=== PATIENT | male | born 1950 | race Caucasian/White ===

== ENCOUNTER 2021-07-06 10:58 | Outpatient (CLI) | payer MEDICARE ==
[2021-07-06 14:50] LABS: BASOPHILS % (AUTO) 0.7 %; EOSINOPHILS # (AUTO) 0.1 10^3/uL (0.0-0.7); EOSINOPHILS % (AUTO) 1.5 %; HCT - HEMATOCRIT 43.2 % (42.0-52.0); HGB - HEMOGLOBIN 13.5 g/dL (14.0-18.0); LYMPHOCYTES % (AUTO) 22.7 %; MEAN CORPUSCULAR HEMOGLOBIN 30.2 pg (27.0-31.0); MEAN CORPUSCULAR HGB CONC 31.3 g/dL (32.0-36.0); MEAN CORPUSCULAR VOLUME 96.6 fL (80.0-94.0); MEAN PLATELET VOLUME 10.7 fL (7.4-11.4); MONOCYTES # (AUTO) 0.6 10^3/uL (0.0-1.0); MONOCYTES % (AUTO) 12.6 %; NEUTROPHILS # (AUTO) 2.9 10^3/uL (1.5-6.6); NEUTROPHILS % (AUTO) 62.3 %; PLT - PLATELET COUNT 172 10^3/uL (130-450); RED BLOOD COUNT 4.47 10^6/uL (4.70-6.10); RED CELL DISTRIBUTION WIDTH 14.6 % (12.0-15.0); WHITE BLOOD COUNT 4.6 x10^3/uL (4.8-10.8)
[2021-07-06 14:51] LABS: PARTIAL THROMBOPLASTIN TIME 30.3 secs (24.9-33.3)
[2021-07-06 15:22] LABS: INR 1.3 (0.8-1.2); PT - PROTHROMBIN TIME 14.5 secs (9.9-12.6)
[2021-07-06 15:56] LABS: ALBUMIN 4.3 g/dL (3.2-5.5); ALBUMIN/GLOBULIN RATIO 1.7 (1.0-2.2); ALKALINE PHOSPHATASE 50 IU/L (42-121); ALT ALANINE AMINOTRANSFERASE 17 IU/L (10-60); AST ASPARTATE AMINOTRANSFERASE 24 IU/L (10-42); BILIRUBIN,TOTAL 0.7 mg/dL (0.2-1.0); BUN - BLOOD UREA NITROGEN 31 mg/dL (6-20); CALCIUM 9.4 mg/dL (8.5-10.3); CARBON DIOXIDE - CO2 28 mmol/L (21-32); CHLORIDE 102 mmol/L (101-111); CHOL/HDL RATIO 2.6 (<5.0); CHOLESTEROL 243 mg/dL; CREATININE 1.1 mg/dL (0.6-1.2); GFR - MDRD 66 (>89); GLUCOSE 99 mg/dL (70-100); HDL CHOLESTEROL 94 mg/dL; LDL CHOLESTEROL,CALCULATED 137 mg/dL; LDL/HDL RATIO 1.5 (<3.6); POTASSIUM 4.2 mmol/L (3.5-5.0); SODIUM 137 mmol/L (135-145); TOTAL PROTEIN 6.8 g/dL (6.7-8.2); TRIGLYCERIDES 62 mg/dL; VLDL CHOLESTEROL 12 mg/dL
[2021-07-06 20:20] LABS: ESTIMATED AVERAGE GLUCOSE 114 mg/dL (70-100); HEMOGLOBIN A1c% 5.6 % (4.27-6.07)
[2021-07-08 09:20] LABS: HEPATITIS C ANTIBODY NON-REACTIVE (NON-REACTIVE)
== END 2021-07-06 10:59 | disposition home or self-care (01) ==
LOC: LAB.S 10:58
PROVIDERS: ATTEND Internal Medicine
DX: Z00.00 Encounter for general adult medical examination without abnormal findings (principal); I48.91 Unspecified atrial fibrillation; N18.30 Chronic kidney disease, stage 3 unspecified; Z11.59 Encounter for screening for other viral diseases; Z13.1 Encounter for screening for diabetes mellitus; Z13.220 Encounter for screening for lipoid disorders; Z79.01 Long term (current) use of anticoagulants
CPT/HCPCS: 36415; 80053; 80061; 83036; 83721; 85025; 85610; 85730; 86803

== ENCOUNTER 2021-08-03 07:29 | Outpatient (CLI) | payer MEDICARE ==
--- NOTE | 2021-08-03 09:23 | Ultrasound Report ---
PROCEDURE: Aorta Screening INDICATIONS: AAA SCREEN, H/O SMOKING TECHNIQUE: Real time scanning was performed of the aorta and iliac arteries, with image documentatio n. COMPARISON: None FINDINGS: Aorta: Proximal aortic diameter measures 2.8 x 2 point cm. Mid-aorta measures 2.1 x 2.5 cm. Distal aortic diameter is 2.0 x 1 point cm. Iliac arteries: Right common iliac artery measures 1.3 x 1.4 cm. Left common iliac artery measures 1.3 x 1.3 cm. IMPRESSION: No evidence of abdominal aortic aneurysm. Reviewed by: Cheryl Coronel MD, PhD on 08/03/2021 9:21 AM PST Approved by: Cheryl Coronel MD, PhD on 08/03/2021 9:21 AM PST Station ID: [id number]
--- NOTE | 2021-08-03 10:25 | Ultrasound Report ---
PROCEDURE: Testicle INDICATIONS: PAIN IN SCROTUM TECHNIQUE: Real-time scanning was performed of the scrotum and testicles, with image documentation. Color and p ulse Doppler interrogation was performed of both testicles. COMPARISON: None. FINDINGS: Right: Testicle is normal in size at 2.0 x 3.2 x 4.6 cm, and homogenous in echotexture. Right epidid ymal head cyst measuring 1.6 cm. Moderate right-sided varicocele. No hydrocele. Overlying scrotal ski n is normal in thickness. Left: Testicle is normal in size at 2.0 x 2.2 x 2.8 cm, and homogeneous in echotexture. Normal appea ana lilia of the epididymis. No hydrocele or varicoceles. Overlying scrotal skin is normal in thickness. Doppler: Color and pulse Doppler demonstrate normal and symmetric arterial flow in both testicles. IMPRESSION: Moderate right varicocele. Right epididymal head cyst measuring 1.6 cm. Reviewed by: Darwin Adams MD on 08/03/2021 10:24 AM PST Approved by: Darwin Adams MD on 08/03/2021 10:24 AM PST Station ID: [id number]
== END 2021-08-03 07:30 | disposition home or self-care (01) ==
LOC: DI 07:29
PROVIDERS: ATTEND Internal Medicine
DX: Z13.6 Encounter for screening for cardiovascular disorders (principal); Z87.891 Personal history of nicotine dependence; I86.1 Scrotal varices; N50.3 Cyst of epididymis

== ENCOUNTER 2022-02-21 13:19 | Emergency (ER) | payer MEDICARE ==
[2022-02-21] MEDS ORDERED: ADENOSINE 6 MG/2 ML VIAL IVP STA (13:38)
--- NOTE | 2022-02-21 13:40 | ED Physician Documentation ---
PD HPI CHEST PAIN - Stated complaint Stated Complaint: RAPID HEART BEATS - Chief complaint Chief Complaint: Cardiac - History obtained from History obtained from: Patient, Family () - Additional information Additional information: 71-year-old gentleman has a history of A. fib status post ablation about 4 years ago without recurrence since. He is still on a NOAC, Pradaxa. For the last 3 days he has felt a rapid heart rate. It is not painful. He gets a little winded when exercising, but is not short of breath at rest. Had a brief dizzy episode yesterday. He is not on any other meds right now. Review of Systems Ten Systems: 10 systems reviewed and negative Constitutional: denies: Fever, Chills, Fatigue Cardiac: denies: Chest pain / pressure, Pedal edema, Calf pain Respiratory: denies: Cough GI: denies: Bloody / black stool Musculoskeletal: denies: Neck pain, Back pain PD PAST MEDICAL HISTORY - Present Medications Home Medications: Ambulatory Orders Medication Instructions Recorded Confirmed Dabigatran Etexilate Mesylate 150 mg ORAL BID 02/21/22 02/21/22 [Pradaxa] diltiaZEM CD [Cardizem Cd] 120 mg PO DAILY #30 02/21/22 - Allergies Allergies/Adverse Reactions: Allergies Allergy/AdvReac Type Severity Reaction Status Date / Time clindamycin Allergy Hives Verified 02/21/22 13:32 PD ED PE NORMAL - Vitals Vital signs reviewed: Yes - General General: Alert and oriented X 3, No acute distress - HEENT HEENT: PERRL, EOMI - Neck Neck: Supple, no meningeal sign, No bony TTP - Cardiac Cardiac: Other (rapid/reg, no murmur) - Respiratory Respiratory: No respiratory distress, Clear bilaterally - Abdomen Abdomen: Normal bowel sounds, Soft, Non tender - Derm Derm: No rash - Extremities Extremities: No edema, No calf tenderness / cord - Neuro Neuro: Alert and oriented X 3, Normal speech Results - Vitals Vitals: Vital Signs - 24 hr 02/21/22 02/21/22 02/21/22 13:28 13:56 14:12 Temperature 36.7 C Heart Rate 139 H 134 H 132 H Respiratory 16 16 20 Rate Blood Pressure 101/88 H 101/88 H 99/78 O2 Saturation 100 97 97 02/21/22 02/21/22 02/21/22 14:27 14:44 15:11 Temperature Heart Rate 130 H 127 H 127 H Respiratory 16 16 16 Rate Blood Pressure 94/69 93/79 104/79 O2 Saturation 97 99 98 02/21/22 02/21/22 15:22 15:37 Temperature Heart Rate 85 95 Respiratory 16 22 Rate Blood Pressure 104/79 97/75 O2 Saturation 100 100 Oxygen O2 Source Room air - EKG (time done) 1326 Rate: Rate (enter#) (137) Rhythm: Other (narrow, exquisitely regular tachycardia) Intervals: Prolonged QT, Other (lafb) QRS: Normal Ischemia: Normal ST segments. No: ST elevation c/w ischemia Computer interpretation: Agree with computer - Labs Labs: Laboratory Tests 02/21/22 02/21/22 02/21/22 13:40 13:40 13:40 WBC 6.9 RBC 4.41 L Hgb 13.8 L Hct 41.3 L MCV 93.7 MCH 31.3 H MCHC 33.4 RDW 13.9 Plt Count 209 MPV 10.1 Neut # (Auto) 5.0 Lymph # (Auto) 1.2 L [place] # (Auto) 0.5 Eos # (Auto) 0.1 Baso # (Auto) 0.0 Absolute Nucleated RBC 0.00 Nucleated RBC % 0.0 Sodium 135 Potassium 4.0 Chloride 102 Carbon Dioxide 25 Anion Gap 8.0 BUN 33 H Creatinine 1.4 H Estimated GFR (MDRD) 50 L Glucose 134 H Calcium 9.4 Magnesium 2.0 TSH 2.70 PD MEDICAL DECISION MAKING - ED course ED course: 71-year-old gentleman presents with a symptomatic exquisitely regular narrow complex tachycardia. Valsalva during initial evaluation resulted in no change in rate. Given his history I do wonder if this represents atrial flutter altho ugh the computer reads it as sinus tachycardia. He was given 6 mg of IV adenosine and subsequently it was clear that the underlying rhythm was atrial flutter. Then given metoprolol 5mg IV x1, with no effect, repeated and HR came down only to high 120s. Offered cardioversion, pt declined. After the administration of 10 mg of diltiazem he was still in atrial flutter, but his rate was controlled in the 80s. I will prescribe this but mention to him that he may need close dose changes and follow-up with his senior industrial engineer. Departure - Departure Clinical Impression: Atrial flutter Qualifiers: Atrial flutter type: typical Qualified Code(s): I48.3 - Typical atrial flutter Condition: Good Record reviewed to determine appropriate education?: Yes Instructions: ED Paroxysmal Atrial Flutter Prescriptions: diltiaZEM CD [Cardizem Cd] 120 mg PO DAILY #30 Comments: You were seen today for rapid atrial flutter. You are still in atrial flutter but we were able to get you rate controlled. Metoprolol did not give much in the way of rate control but you did have good rate control with diltiazem. I am prescribing this. Follow-up with your senior industrial engineer, next Available appointment. Return if worse or if heart rate is consistently over 110 at rest.
[2022-02-21 13:48] LABS: BASOPHILS % (AUTO) 0.4 %; EOSINOPHILS # (AUTO) 0.1 10^3/uL (0.0-0.7); EOSINOPHILS % (AUTO) 1.4 %; HCT - HEMATOCRIT 41.3 % (42.0-52.0); HGB - HEMOGLOBIN 13.8 g/dL (14.0-18.0); LYMPHOCYTES # (AUTO) 1.2 10^3/uL (1.5-3.5); LYMPHOCYTES % (AUTO) 17.4 %; MEAN CORPUSCULAR HEMOGLOBIN 31.3 pg (27.0-31.0); MEAN CORPUSCULAR HGB CONC 33.4 g/dL (32.0-36.0); MEAN CORPUSCULAR VOLUME 93.7 fL (80.0-94.0); MEAN PLATELET VOLUME 10.1 fL (7.4-11.4); MONOCYTES # (AUTO) 0.5 10^3/uL (0.0-1.0); MONOCYTES % (AUTO) 7.7 %; NEUTROPHILS % (AUTO) 72.7 %; PLT - PLATELET COUNT 209 10^3/uL (130-450); RED BLOOD COUNT 4.41 10^6/uL (4.70-6.10); RED CELL DISTRIBUTION WIDTH 13.9 % (12.0-15.0); WHITE BLOOD COUNT 6.9 x10^3/uL (4.8-10.8)
[2022-02-21] MEDS ORDERED: METOPROLOL 5 MG/5 ML VIAL IVP STA ×2 (14:02→14:23)
[2022-02-21 14:04] LABS: CALCIUM 9.4 mg/dL (8.5-10.3); CREATININE 1.4 mg/dL (0.6-1.2)
[2022-02-21] MEDS ORDERED: SODIUM CHLORIDE 0.9% 1,000 ML IV STA (14:23)
[2022-02-21] MEDS ORDERED: diltiaZEM INJ 5 MG/ML VIAL IVP STA (15:14)
[2022-02-21 16:02] VITALS: BP 100/75
== END 2022-02-21 16:06 | disposition home or self-care (01) ==
LOC: ED 13:19
DX: I48.3 Typical atrial flutter (principal)
CPT/HCPCS: 36415; 80048; 83735; 84443; 85025; 93005; 99283; 99284; J0153

== ENCOUNTER 2022-02-23 10:28 | Emergency (ER) | payer MEDICARE ==
--- NOTE | 2022-02-23 10:43 | ED Physician Documentation ---
PD HPI CHEST PAIN - Stated complaint Stated Complaint: HIGH BLOOD PRESSURE - Chief complaint Chief Complaint: Cardiac - History obtained from History obtained from: Patient - History of Present Illness Timing - onset: How many days ago (3) Timing - onset during: Light activity Timing - duration: Days (3) Timing - details: Abrupt onset, Still present (he had onset paroxysm of atrial fib 3 days ago and seen in ED with slowing using diltiazem. Still fib. Discussion of cardioversion but pt preferred waiting to see if converts spont. Still in fib through today so back again.) Quality: Tightness Location: Substernal Radiation: No: Jaw, Neck Improved by: Rest Worsened by: Exertion. No: Inspiration Associated symptoms: General Weakness, Palpitations. No: Shortness of air, Na usea, Feeling faint / dizzy Similar symptoms before: Diagnosis (atrial fib but usually lasts just 5-10 minutes, occ 30 minutes, since his ablation years ago.) Recently seen: Emergency Dept Review of Systems Constitutional: denies: Fever, Chills Nose: denies: Rhinorrhea / runny nose, Congestion Throat: denies: Sore throat Cardiac: reports: Palpitations. denies: Pedal edema, Calf pain Respiratory: denies: Dyspnea, Cough, Wheezing GI: denies: Abdominal Pain, Vomiting, Diarrhea, Bloody / black stool Neurologic: reports: Generalized weakness. denies: Focal weakness, Numbness, Near syncope PD PAST MEDICAL HISTORY - Past Medical History Cardiovascular: Atrial flutter, Atrial fibrillation Respiratory: None Neuro: None Endocrine/Autoimmune: None GI: None : Benign prostate hypertrophy HEENT: None Psych: None Musculoskeletal: None Derm: None - Past Surgical History Past Surgical History: Yes Cardiovascular: Other - Present Medications Home Medications: Ambulatory Orders Medication Instructions Recorded Confirmed Dabigatran Etexilate Mesylate 150 mg ORAL BID 02/21/22 02/21/22 [Pradaxa] diltiaZEM CD [Cardizem Cd] 120 mg PO DAILY #30 02/21/22 - Allergies Allergies/Adverse Reactions: Allergies Allergy/AdvReac Type Severity Reaction Status Date / Time clindamycin Allergy Hives Verified 02/23/22 10:36 - Social History Does the pt smoke?: No Smoking Status: Never smoker Does the pt drink ETOH?: No Does the pt have substance abuse?: No - Immunizations Immunizations are current?: Yes PD ED PE NORMAL - Vitals Vital signs reviewed: Yes - General General: Alert and oriented X 3, No acute distress, Well developed/nourished - HEENT HEENT: Pharynx benign - Neck Neck: Supple, no meningeal sign, No adenopathy - Cardiac Cardiac: No murmur. No: RRR (irregular and tachycardic at about 130.) - Respiratory Respiratory: No respiratory distress, Clear bilaterally - Abdomen Abdomen: Soft, Non tender - Derm Derm: Normal color, Warm and dry - Extremities Extremities: Normal ROM s pain, No edema, No calf tenderness / cord - Neuro Neuro: Alert and oriented X 3, dungeon master 2-12 intact, No motor deficit, No sensory deficit, Normal speech Eye Opening: Spontaneous Motor: Obeys Commands Verbal: Oriented GCS Score: 15 Results - Vitals Vitals: Vital Signs - 24 hr 02/23/22 02/23/22 02/23/22 10:33 11:45 11:50 Temperature 36.0 C L Heart Rate 131 H 103 H 58 L Respiratory 16 18 14 Rate Blood Pressure 120/81 H 100/79 93/75 O2 Saturation 100 100 97 02/23/22 02/23/22 02/23/22 11:57 12:09 12:35 Temperature 36.7 C Heart Rate 53 L 54 L 55 L Respiratory 16 16 18 Rate Blood Pressure 91/68 97/72 95/68 O2 Saturation 98 98 99 Oxygen O2 Source Room air - EKG (time done) 10:39 Rate: Rate (enter#) (118) Rhythm: Atrial fibrillation [place]: Normal QRS: Normal, Poor R wave progression (with q waves anteriorly) Ischemia: Normal ST segments. No: ST elevation c/w ischemia, ST depression Compare to prior EKG: Unchanged from prior EKG post cardioversion Rate: Rate (enter#) (56) Rhythm: Sinus bradycardia [place]: Normal Intervals: Normal [place] QRS: Normal Ischemia: Normal ST segments. No: ST elevation c/w ischemia, ST depression Compare to prior EKG: Changed from prior EKG (similar morphology but now NSR) - Labs Labs: Laboratory Tests 02/23/22 02/23/22 02/23/22 10:47 10:47 10:47 WBC 5.2 RBC 4.54 L Hgb 14.1 Hct 43.3 MCV 95.4 H MCH 31.1 H MCHC 32.6 RDW 14.1 Plt Count 199 MPV 9.6 Neut # (Auto) 3.6 Lymph # (Auto) 1.0 L [place] # (Auto) 0.5 Eos # (Auto) 0.1 Baso # (Auto) 0.0 Absolute Nucleated RBC 0.00 Nucleated RBC % 0.0 Sodium 139 Potassium 4.1 Chloride 102 Carbon Dioxide 29 Anion Gap 8.0 BUN 31 H Creatinine 1.4 H Estimated GFR (MDRD) 50 L Glucose 116 H Calcium 9.6 Magnesium 1.9 Total Bilirubin 0.7 AST 24 ALT 20 Alkaline Phosphatase 50 B-Natriuretic Peptide 222 H Total Protein 6.8 Albumin 4.0 Globulin 2.8 Albumin/Globulin Ratio 1.4 Lipase 46 Procedures - Procedural sedation Sedation prep: Informed consent, Time out completed, Last meal (5 hours prior, small breakfast), PE performed, ASA 2 - mild disease, IV O2 monitor, RT present Sedation Medications: propofol Mallampati classification: I Patient status during sedation: Drowsy, Responds to tactile, Vitals remained stable, Maintained airway, Recovered uneventfully Sedation recovery: Recovered uneventfully, Back to baseline Time in sedation (Minutes): 5 - Cardioversion 1 Indication: Tachyarrhythmia Risks, benefits, alternatives explained to: Pt Prep: IV, O2, color television console monitor, Pulse ox, Airway equip CS via: Pads, AP approach Sync: Biphasic, 100j Post cardioversion rhythm: NSR Performed by: ED MD PD MEDICAL DECISION MAKING - ED course Complexity details: reviewed old records (prior ED visit 2 days ago.), considered differential (still in prolonged paroxysm of atril fib/flutter for 3 days now. Anticoagulated. discussed cardioversion with patient again (was discussed as option 2 days ago). He is desiring that now. ), d/w patient Departure - Departure Disposition: 01 Home, Self Care Clinical Impression: Paroxysmal atrial fibrillation with RVR Condition: Stable Record reviewed to determine appropriate education?: Yes Instructions: ED Paroxysmal Atrial Flutter Follow-Up: Shadi Leon MD [Primary Care Provider] - Comments: Continue with your current medication of anticoagulant as well as the newly prescribed diltiazem. Hold it if you find your heart rate less than 55. Follow-up with your carport erector when you get a new one otherwise with your primary care. Stay well-hydrated otherwise. Discharge Date/Time: 02/23/22 12:50
[2022-02-23 10:54] LABS: BASOPHILS % (AUTO) 0.8 %; EOSINOPHILS # (AUTO) 0.1 10^3/uL (0.0-0.7); EOSINOPHILS % (AUTO) 1.3 %; HCT - HEMATOCRIT 43.3 % (42.0-52.0); HGB - HEMOGLOBIN 14.1 g/dL (14.0-18.0); LYMPHOCYTES % (AUTO) 19.2 %; MEAN CORPUSCULAR HEMOGLOBIN 31.1 pg (27.0-31.0); MEAN CORPUSCULAR HGB CONC 32.6 g/dL (32.0-36.0); MEAN CORPUSCULAR VOLUME 95.4 fL (80.0-94.0); MEAN PLATELET VOLUME 9.6 fL (7.4-11.4); MONOCYTES # (AUTO) 0.5 10^3/uL (0.0-1.0); MONOCYTES % (AUTO) 9.4 %; NEUTROPHILS # (AUTO) 3.6 10^3/uL (1.5-6.6); NEUTROPHILS % (AUTO) 68.9 %; PLT - PLATELET COUNT 199 10^3/uL (130-450); RED BLOOD COUNT 4.54 10^6/uL (4.70-6.10); RED CELL DISTRIBUTION WIDTH 14.1 % (12.0-15.0); WHITE BLOOD COUNT 5.2 x10^3/uL (4.8-10.8)
[2022-02-23] MEDS ORDERED: PROPOFOL 200 MG/20 ML VIAL IVP STA (11:07)
[2022-02-23] MEDS ORDERED: diltiaZEM INJ 5 MG/ML VIAL IVP STA (11:07)
[2022-02-23 11:09] LABS: ALBUMIN/GLOBULIN RATIO 1.4 (1.0-2.2); BILIRUBIN,TOTAL 0.7 mg/dL (0.2-1.0); CALCIUM 9.6 mg/dL (8.5-10.3); CREATININE 1.4 mg/dL (0.6-1.2); MAGNESIUM 1.9 mg/dL (1.7-2.8); POTASSIUM 4.1 mmol/L (3.5-5.0); TOTAL PROTEIN 6.8 g/dL (6.7-8.2)
--- NOTE | 2022-02-23 11:14 | XRAY Report ---
PROCEDURE: Chest 1 View X-Ray INDICATIONS: Chest pain TECHNIQUE: One view of the chest was acquired. COMPARISON: None FINDINGS: Surgical changes and devices: None. Lungs and pleura: No pleural effusions or pneumothorax. Lungs are clear. Mediastinum: Mediastinal contours appear normal. Heart size is enlarged. Bones and chest wall: No suspicious bony lesions. Overlying soft tissues appear unremarkable. IMPRESSION: No acute pulmonary process. Reviewed by: Rebekah Webb MD on 02/23/2022 11:12 AM PDT Approved by: Rebekah Webb MD on 02/23/2022 11:12 AM PDT Station ID: [id number]
[2022-02-23] MEDS ORDERED: SODIUM CHLORIDE 0.9% 500 ML IV STA (11:56)
[2022-02-23 12:39] VITALS: BP 95/68
== END 2022-02-23 12:50 | disposition home or self-care (01) ==
LOC: ED 10:28
DX: I48.0 Paroxysmal atrial fibrillation (principal); Z79.01 Long term (current) use of anticoagulants
CPT/HCPCS: 36415; 80053; 83690; 83735; 83880; 84484; 85025; 92960; 93005; 99282

== ENCOUNTER 2022-02-25 10:35 | Emergency (ER) | payer MEDICARE ==
[2022-02-25 10:58] LABS: BASOPHILS # (AUTO) 0.1 10^3/uL (0.0-0.1); BASOPHILS % (AUTO) 1.1 %; EOSINOPHILS % (AUTO) 0.9 %; HCT - HEMATOCRIT 43.7 % (42.0-52.0); HGB - HEMOGLOBIN 14.2 g/dL (14.0-18.0); LYMPHOCYTES # (AUTO) 0.9 10^3/uL (1.5-3.5); LYMPHOCYTES % (AUTO) 19.7 %; MEAN CORPUSCULAR HEMOGLOBIN 31.5 pg (27.0-31.0); MEAN CORPUSCULAR HGB CONC 32.5 g/dL (32.0-36.0); MEAN CORPUSCULAR VOLUME 96.9 fL (80.0-94.0); MEAN PLATELET VOLUME 10.2 fL (7.4-11.4); MONOCYTES # (AUTO) 0.5 10^3/uL (0.0-1.0); MONOCYTES % (AUTO) 11.3 %; NEUTROPHILS # (AUTO) 3.1 10^3/uL (1.5-6.6); NEUTROPHILS % (AUTO) 66.8 %; PLT - PLATELET COUNT 201 10^3/uL (130-450); RED BLOOD COUNT 4.51 10^6/uL (4.70-6.10); RED CELL DISTRIBUTION WIDTH 14.1 % (12.0-15.0); WHITE BLOOD COUNT 4.6 x10^3/uL (4.8-10.8)
[2022-02-25] MEDS ORDERED: diltiaZEM INJ 5 MG/ML VIAL IVP STA (10:59)
--- NOTE | 2022-02-25 11:01 | ED Physician Documentation ---
PD HPI CHEST PAIN - Stated complaint Stated Complaint: ELEVATED HR - Chief complaint Chief Complaint: Cardiac - History obtained from History obtained from: Patient - History of Present Illness Timing - onset: Today (this morning) Timing - onset during: Light activity Timing - duration: Hours (2) Timing - details: Abrupt onset, Still present Quality: Tightness (has feeling of some chest tightness and that heart rate is fast, at 130-140 at home, c/w prior atrial fib episodes.) Location: Substernal Radiation: No: Neck, Back, Abdominal Improved by: No: Rest Worsened by: No: Exertion, Inspiration Associated symptoms: General Weakness, Palpitations. No: Shortness of air, Nausea, Vomiting, Feeling faint / dizzy Similar symptoms before: Diagnosis (atrial fib/flutter.) Recently seen: Emergency Dept (twice this past week for atrial fib, with cardioversion 2 days ago.) Review of Systems Constitutional: denies: Fever, Chills Nose: denies: Rhinorrhea / runny nose, Congestion Throat: denies: Sore throat Respiratory: denies: Cough GI: denies: Abdominal Pain, Nausea, Vomiting, Diarrhea Musculoskeletal: denies: Extremity swelling Neurologic: reports: Generalized weakness. denies: Near syncope PD PAST MEDICAL HISTORY - Past Medical History Cardiovascular: Atrial flutter, Atrial fibrillation Respiratory: None Neuro: None Endocrine/Autoimmune: None GI: None : Benign prostate hypertrophy HEENT: None Psych: None Musculoskeletal: None Derm: None - Past Surgical History Past Surgical History: Yes Cardiovascular: Other - Present Medications Home Medications: Ambulatory Orders Medication Instructions Recorded Confirmed Dabigatran Etexilate Mesylate 150 mg ORAL BID 02/21/22 02/21/22 [Pradaxa] diltiaZEM CD [Cardizem Cd] 120 mg PO DAILY #30 02/21/22 diltiaZEM CD [Cardizem Cd] 180 mg PO DAILY 20 Days #20 cap 02/25/22 - Allergies Allergies/Adverse Reactions: Allergies Allergy/AdvReac Type Severity Reaction Status Date / Time clindamycin Allergy Hives Verified 02/25/22 10:42 - Social History Does the pt smoke?: No Smoking Status: Never smoker Does the pt drink ETOH?: No Does the pt have substance abuse?: No - Immunizations Immunizations are current?: Yes PD ED PE NORMAL - Vitals Vital signs reviewed: Yes (tachycardic and irregular c/w atrial fib/flutter. ) - General General: Alert and oriented X 3, No acute distress, Well developed/nourished - HEENT HEENT: Pharynx benign - Neck Neck: Supple, no meningeal sign, No adenopathy - Cardiac Cardiac: No murmur. No: RRR - Respiratory Respiratory: No respiratory distress, Clear bilaterally - Abdomen Abdomen: Soft, Non tender - Derm Derm: Normal color, Warm and dry - Extremities Extremities: Normal ROM s pain, No edema, No calf tenderness / cord - Neuro Neuro: Alert and oriented X 3, No motor deficit, Normal speech - Psych Psych: Normal mood, Normal affect Results - Vitals Vitals: Vital Signs - 24 hr 02/25/22 02/25/22 02/25/22 10:40 11:00 11:30 Temperature 36.7 C Heart Rate 129 H 97 96 Respiratory 10 L 20 21 Rate Blood Pressure 122/90 H 108/94 H 101/77 O2 Saturation 98 98 97 02/25/22 02/25/22 02/25/22 12:00 12:30 13:00 Temperature Heart Rate 95 128 H 110 H Respiratory 24 26 H 14 Rate Blood Pressure 97/70 103/85 H 117/94 H O2 Saturation 99 98 98 02/25/22 02/25/22 02/25/22 13:30 14:00 14:31 Temperature Heart Rate 88 99 123 H Respiratory 18 18 32 H Rate Blood Pressure 110/81 H 112/72 108/79 O2 Saturation 99 99 98 02/25/22 02/25/22 02/25/22 14:35 14:40 14:42 Temperature Heart Rate 52 L 57 L 55 L Respiratory 18 18 14 Rate Blood Pressure 93/68 97/73 O2 Saturation 100 100 98 02/25/22 02/25/22 02/25/22 14:49 15:00 15:27 Temperature Heart Rate 58 L 55 L 58 L Respiratory 12 12 15 Rate Blood Pressure 94/71 96/70 95/74 O2 Saturation 97 97 98 02/25/22 02/25/22 15:30 16:05 Temperature Heart Rate 58 L 57 L Respiratory 15 12 Rate Blood Pressure 95/74 102/70 O2 Saturation 98 98 Oxygen O2 Source Room air - EKG (time done) 10:51 Rate: Rate (enter#) (126) Rhythm: Atrial flutter [place]: Normal QRS: Normal Ischemia: Non specific changes post cardioversion Rate: Rate (enter#) (55) Rhythm: Sinus bradycardia [place]: Normal Intervals: Prolonged [place] QRS: Normal Ischemia: Non specific changes - Labs Labs: Laboratory Tests 02/25/22 02/25/22 02/25/22 10:50 10:50 10:50 WBC 4.6 L RBC 4.51 L Hgb 14.2 Hct 43.7 MCV 96.9 H MCH 31.5 H MCHC 32.5 RDW 14.1 Plt Count 201 MPV 10.2 Neut # (Auto) 3.1 Lymph # (Auto) 0.9 L [place] # (Auto) 0.5 Eos # (Auto) 0.0 Baso # (Auto) 0.1 Absolute Nucleated RBC 0.00 Nucleated RBC % 0.0 Sodium 138 Potassium 4.0 Chloride 103 Carbon Dioxide 27 Anion Gap 8.0 BUN 29 H Creatinine 1.2 Estimated GFR (MDRD) 59 L Glucose 112 H Calcium 9.6 Magnesium Total Bilirubin 0.6 AST 65 H ALT 51 Alkaline Phosphatase 52 Troponin I High Sens 8.6 Total Protein 7.0 Albumin 4.2 Globulin 2.8 Albumin/Globulin Ratio 1.5 Lipase 47 02/25/22 10:50 WBC RBC Hgb Hct MCV MCH MCHC RDW Plt Count MPV Neut # (Auto) Lymph # (Auto) [place] # (Auto) Eos # (Auto) Baso # (Auto) Absolute Nucleated RBC Nucleated RBC % Sodium Potassium Chloride Carbon Dioxide Anion Gap BUN Creatinine Estimated GFR (MDRD) Glucose Calcium Magnesium 2.3 Total Bilirubin AST ALT Alkaline Phosphatase Troponin I High Sens Total Protein Albumin Globulin Albumin/Globulin Ratio Lipase Procedures - Cardioversion 1 Indication: Tachyarrhythmia Risks, benefits, alternatives explained to: Pt Prep: IV, O2, repeater operator, Pulse ox, Airway equip CS via: Pads, AP approach Sync: Biphasic, 100j Post cardioversion rhythm: A-fib Performed by: ED 2 Indication: Tachyarrhythmia Sync: Biphasic, 150j Post cardioversion rhythm: NSR Performed by: ED PD MEDICAL DECISION MAKING - ED course Complexity details: reviewed results, considered differential (recurrent atrial flutter. On diltiazem 120 mg daily. Can increase dose. Is anticoagulated. ), d/w patient Departure - Departure Disposition: Home, Self Care Clinical Impression: Paroxysmal atrial fibrillation with RVR Condition: Stable Record reviewed to determine appropriate education?: Yes Follow-Up: Shadi Leon MD [Primary Care Provider] - Prescriptions: diltiaZEM CD [Cardizem Cd] 180 mg PO DAILY 20 Days #20 cap Comments: Continue previous instructions from last time. Exception is to increase your diltiazem from 120 to 180 mg daily and see if that holds you in a regular rhythm better. Decrease back to the 120 mg if you find your heart rate to be under 50 or blood pressure low on the higher dose. Follow-up with cardiology as intended. I sent your new prescription to [facility] and [place]. Discharge Date/Time: 02/25/22 16:13
[2022-02-25 11:11] LABS: ALBUMIN 4.2 g/dL (3.2-5.5); ALBUMIN/GLOBULIN RATIO 1.5 (1.0-2.2); BILIRUBIN,TOTAL 0.6 mg/dL (0.2-1.0); CALCIUM 9.6 mg/dL (8.5-10.3); CREATININE 1.2 mg/dL (0.6-1.2)
--- NOTE | 2022-02-25 11:20 | XRAY Report ---
PROCEDURE: Chest 1 View X-Ray INDICATIONS: Chest pain TECHNIQUE: One view of the chest was acquired. COMPARISON: 02/23/2022 FINDINGS: Surgical changes and devices: None. Lungs and pleura: No pleural effusions or pneumothorax. Lungs are clear. Mediastinum: Mediastinal contours appear normal. Heart size is normal. Bones and chest wall: No suspicious bony lesions. Overlying soft tissues appear unremarkable. IMPRESSION: No acute cardiopulmonary process demonstrated radiographically. Reviewed by: Darwin Adams MD on 02/25/2022 11:18 AM PDT Approved by: Darwin Adams MD on 02/25/2022 11:18 AM PDT Station ID: [id number]
[2022-02-25] MEDS ORDERED: PROPOFOL 200 MG/20 ML VIAL IVP STA (14:27)
[2022-02-25] MEDS ORDERED: SODIUM CHLORIDE 0.9% 1,000 ML IV STA (15:02)
[2022-02-25 16:06] VITALS: BP 102/70
== END 2022-02-25 16:13 | disposition home or self-care (01) ==
LOC: ED 10:35
DX: I48.20 Chronic atrial fibrillation, unspecified (principal); Z79.01 Long term (current) use of anticoagulants
CPT/HCPCS: 36415; 80053; 83690; 83735; 84443; 84484; 85025; 92960; 93005; 99282

== ENCOUNTER 2022-07-15 07:54 | Outpatient (CLI) | payer MEDICARE ==
[2022-07-15 14:55] LABS: BASOPHILS % (AUTO) 0.8 %; EOSINOPHILS # (AUTO) 0.1 10^3/uL (0.0-0.7); EOSINOPHILS % (AUTO) 2.6 %; HCT - HEMATOCRIT 48.1 % (42.0-52.0); HGB - HEMOGLOBIN 15.4 g/dL (14.0-18.0); LYMPHOCYTES # (AUTO) 1.2 10^3/uL (1.5-3.5); LYMPHOCYTES % (AUTO) 23.9 %; MEAN CORPUSCULAR VOLUME 93.6 fL (80.0-94.0); MEAN PLATELET VOLUME 10.3 fL (7.4-11.4); MONOCYTES # (AUTO) 0.6 10^3/uL (0.0-1.0); MONOCYTES % (AUTO) 12.8 %; NEUTROPHILS # (AUTO) 2.9 10^3/uL (1.5-6.6); NEUTROPHILS % (AUTO) 59.3 %; PLT - PLATELET COUNT 221 10^3/uL (130-450); RED BLOOD COUNT 5.14 10^6/uL (4.70-6.10); RED CELL DISTRIBUTION WIDTH 14.4 % (12.0-15.0); WHITE BLOOD COUNT 4.9 x10^3/uL (4.8-10.8)
[2022-07-15 15:10] LABS: PT - PROTHROMBIN TIME 11.2 secs (9.9-12.6)
[2022-07-15 15:35] LABS: ALBUMIN 4.4 g/dL (3.2-5.5); ALBUMIN/GLOBULIN RATIO 1.6 (1.0-2.2); ALKALINE PHOSPHATASE 60 IU/L (42-121); ALT ALANINE AMINOTRANSFERASE 18 IU/L (10-60); AST ASPARTATE AMINOTRANSFERASE 25 IU/L (10-42); BILIRUBIN,TOTAL 0.6 mg/dL (0.2-1.0); BUN - BLOOD UREA NITROGEN 27 mg/dL (6-20); CALCIUM 9.6 mg/dL (8.5-10.3); CARBON DIOXIDE - CO2 29 mmol/L (21-32); CHLORIDE 100 mmol/L (101-111); CHOL/HDL RATIO 3.3 (<5.0); CHOLESTEROL 262 mg/dL; CREATININE 1.2 mg/dL (0.6-1.2); GFR - MDRD 59 (>89); GLUCOSE 109 mg/dL (70-100); HDL CHOLESTEROL 79 mg/dL; LDL CHOLESTEROL,CALCULATED 165 mg/dL; LDL/HDL RATIO 2.1 (<3.6); POTASSIUM 4.2 mmol/L (3.5-5.0); SODIUM 138 mmol/L (135-145); TOTAL PROTEIN 7.1 g/dL (6.7-8.2); TRIGLYCERIDES 91 mg/dL; VLDL CHOLESTEROL 18 mg/dL
[2022-07-15 20:06] LABS: PARTIAL THROMBOPLASTIN TIME 25.9 secs (24.9-33.3)
== END 2022-07-15 07:55 | disposition home or self-care (01) ==
LOC: LAB.S 07:54
PROVIDERS: ATTEND Internal Medicine
DX: I48.91 Unspecified atrial fibrillation (principal); N18.30 Chronic kidney disease, stage 3 unspecified; Z13.220 Encounter for screening for lipoid disorders
CPT/HCPCS: 36415; 80053; 80061; 83721; 85025; 85610; 85730

== ENCOUNTER 2023-08-24 07:31 | Outpatient (CLI) | payer MEDICARE ==
[2023-08-24 14:52] LABS: CREATININE,URINE 59.9 mg/dL
[2023-08-24 14:56] LABS: MICROALBUMIN,URINE < 0.7 mg/dL
[2023-08-24 15:11] LABS: CALCIUM 9.3 mg/dL (8.5-10.3); CREATININE 1.3 mg/dL (0.6-1.3); POTASSIUM 4.4 mmol/L (3.5-4.5)
== END 2023-08-24 07:32 | disposition home or self-care (01) ==
LOC: LAB.S 07:31
PROVIDERS: ATTEND Internal Medicine
DX: N18.30 Chronic kidney disease, stage 3 unspecified (principal)
CPT/HCPCS: 36415; 80048; 82043; 82570